=== PATIENT | female | born 1980 | race Caucasian/White ===

== ENCOUNTER 2020-04-09 13:31 | Outpatient (CLI) | payer OTHER | END 2020-04-09 20:54 | disposition home or self-care (01) | LOC: SUS 13:31 | PROVIDERS: ATTEND Specialist | DX: Z12.31 Encounter for screening mammogram for malignant neoplasm of breast (principal); N85.2 Hypertrophy of uterus; R93.89 Abnormal findings on diagnostic imaging of other specified body structures; N83.201 Unspecified ovarian cyst, right side | CPT/HCPCS: 76830-TC; 76857; 77067 ==

== ENCOUNTER 2020-12-31 05:54 | Emergency (ER) | payer MEDICAID, OTHER ==
[~2020-12-31] VITALS: Ht 157.5 cm; Wt 62.6 kg
[2020-12-31 06:00] VITALS: BP_SYST 120
[2020-12-31] MEDS ORDERED: CEPH500C2 PO (06:34)
== END 2020-12-31 06:49 | disposition home or self-care (01) ==
LOC: SED 05:54
DX: L81.8 Other specified disorders of pigmentation (principal); J02.8 Acute pharyngitis due to other specified organisms; B97.89 Other viral agents as the cause of diseases classified elsewhere; Z79.899 Other long term (current) drug therapy
CPT/HCPCS: 99283

== ENCOUNTER 2021-01-22 09:56 | Outpatient (CLI) | payer OTHER ==
[~2021-01-22 09:56] MED LIST: CEPH500C2 PO
[2021-01-22 10:42] LABS: BILIRUBIN,URINE NEGATIVE (NEGATIVE); BLOOD, URINE NEGATIVE (NEGATIVE); CLARITY/URINE CLEAR (CLEAR); COLOR,URINE YELLOW (YELLOW); GLUCOSE,URINE NEGATIVE (NEGATIVE); KETONES,URINE TRACE (NEGATIVE); LEUKOCYTE ESTERASE ,URINE 1+ (NEGATIVE); NITRITE, URINE NEGATIVE (NEGATIVE); PH,URINE 5.5 (5.0-8.0); PROTEIN URINE NEGATIVE (NEGATIVE); UROBILINOGEN,URINE 0.2 (0.2-1.0)
[2021-01-22 10:45] LABS: BASOPHILS % (AUTO) 0.8 % (0.0-2.0); EOSINOPHILS # (AUTO) 0.2 K/uL (0.0-0.4); EOSINOPHILS % (AUTO) 3.2 % (0.0-4.0); HEMATOCRIT 29.6 % (36-48); HEMOGLOBIN 9.1 g/dL (12.0-16.0); LYMPHOCYTES # (AUTO) 1.6 K/uL (1.0-5.5); LYMPHOCYTES % (AUTO) 32.7 % (20.5-51.5); MEAN CORPUSCULAR HEMOGLOBIN 23 pg (27-31); MEAN CORPUSCULAR HGB CONC 31 % (32-36); MEAN CORPUSCULAR VOLUME 75 fL (79.0-98.0); MONOCYTES # (AUTO) 0.3 K/uL (0.0-1.0); MONOCYTES % (AUTO) 6.1 % (1.7-9.3); NEUTROPHILS # (AUTO) 2.8 K/uL (1.8-7.7); NEUTROPHILS % (AUTO) 57.2 % (40.0-70.0); PLATELET COUNT (AUTO) 478 K/uL (130-430); RED BLOOD CELL COUNT(AUTO) 3.97 MIL/uL (4.2-6.2); RED CELL DISTRIBUTION WIDTH 21.3 % (9.0-15.0); WHITE BLOOD COUNT (AUTO) 4.9 K/uL (4.8-10.8)
[2021-01-22 10:49] LABS: BACTERIA,URINE FEW /HPF (None Seen); RBC,URINE 0-3 /HPF (0-3)
[2021-01-22 10:50] LABS: MUCUS,URINE 1+ /LPF (None Seen)
[2021-01-22 11:13] LABS: ALBUMIN 3.8 g/dL (3.4-4.8); CALCIUM 8.9 mg/dL (8.4-11.0); CREATININE 0.5 mg/dL (0.55-1.30); FREE T4 (FREE THYROXINE) 0.9 ng/dl (0.8-1.5); POTASSIUM 3.3 mmol/L (3.5-5.1); THYROID STIMULATING HORMONE 1.55 uIu/mL (0.36-3.74); TOTAL BILIRUBIN 0.2 mg/dL (0.0-1.0)
[2021-01-23 04:06] LABS: HEMOGLOBIN A1C 4.9 % (4.8-5.6)
== END 2021-01-22 14:50 | disposition home or self-care (01) ==
LOC: SLB 09:56
PROVIDERS: ATTEND Family Medicine
DX: Z00.00 Encounter for general adult medical examination without abnormal findings (principal)
CPT/HCPCS: 36415; 80053; 80061; 81000; 82306; 82607; 83036; 83540; 84439; 84443; 85025

== ENCOUNTER 2021-03-11 10:29 | Emergency (ER) | payer OTHER, MEDICAID ==
[~2021-03-11] VITALS: Ht 154.9 cm; Wt 54.4 kg
[~2021-03-11 10:29] MED LIST changes: +CEPH-548 PO; -CEPH500C2 PO
[2021-03-11 11:00] VITALS: BP_SYST 109
[2021-03-11] MEDS ORDERED: ALBMDI INH (11:04)
[2021-03-11] MEDS ORDERED: BENZ-16 PO (11:04)
[2021-03-11 11:30] VITALS: BP_SYST 109
== END 2021-03-11 11:30 | disposition home or self-care (01) ==
LOC: SED 10:29
DX: J06.9 Acute upper respiratory infection, unspecified (principal); Z79.899 Other long term (current) drug therapy
CPT/HCPCS: 99283

== ENCOUNTER 2021-07-28 06:54 | Outpatient (CLI) | payer OTHER ==
[~2021-07-28 06:54] MED LIST changes: +ALBMDI INH; +BENZ-16 PO
[2021-07-28 08:04] LABS: BASOPHILS % (AUTO) 0.8 % (0.0-2.0); EOSINOPHILS # (AUTO) 0.1 K/uL (0.0-0.4); EOSINOPHILS % (AUTO) 2.3 % (0.0-4.0); HEMATOCRIT 34.5 % (36-48); LYMPHOCYTES # (AUTO) 1.7 K/uL (1.0-5.5); LYMPHOCYTES % (AUTO) 35.3 % (20.5-51.5); MEAN CORPUSCULAR HEMOGLOBIN 26 pg (27-31); MEAN CORPUSCULAR HGB CONC 32 % (32-36); MEAN CORPUSCULAR VOLUME 83 fL (79.0-98.0); MONOCYTES # (AUTO) 0.4 K/uL (0.0-1.0); MONOCYTES % (AUTO) 7.8 % (1.7-9.3); NEUTROPHILS # (AUTO) 2.5 K/uL (1.8-7.7); NEUTROPHILS % (AUTO) 53.8 % (40.0-70.0); PLATELET COUNT (AUTO) 421 K/uL (130-430); RED BLOOD CELL COUNT(AUTO) 4.17 MIL/uL (4.2-6.2); RED CELL DISTRIBUTION WIDTH 19.4 % (9.0-15.0); WHITE BLOOD COUNT (AUTO) 4.7 K/uL (4.8-10.8)
[2021-07-28 08:59] LABS: ALANINE AMINOTRANSFERASE 13 U/L (12-78); ALBUMIN 3.3 g/dL (3.4-4.8); ANION GAP 7 (5-15); ASPARTATE AMINOTRANSFERASE 14 U/L (10-37); CHLORIDE 106 mmol/L (98-107); CREATININE 0.47 mg/dL (0.55-1.30); POTASSIUM 3.6 mmol/L (3.5-5.1); SODIUM SERUM 140 mmol/L (136-145); UREA NITROGEN, BLOOD 15 mg/dL (8-21)
[2021-07-28 09:27] LABS: GFR AFRICAN AMERICAN 188 mL/min (>90)
[2021-07-28 09:29] LABS: TOTAL BILIRUBIN < 0.1 mg/dL (0.0-1.0)
[2021-07-28 09:46] LABS: TOTAL IRON BIND. CAPACITY 431 ug/dL (250-450)
[2021-07-28 09:54] LABS: CALCIUM 9.1 mg/dL (8.4-11.0)
[2021-07-28 09:55] LABS: GLUCOSE 43 mg/dL (70-99)
== END 2021-07-28 21:03 | disposition home or self-care (01) ==
LOC: SLB 06:54
PROVIDERS: ATTEND Specialist
DX: D50.9 Iron deficiency anemia, unspecified (principal)
CPT/HCPCS: 36415; 80053; 83540; 83550; 85025

== ENCOUNTER 2021-11-12 15:22 | Outpatient (CLI) | payer OTHER | END 2021-11-12 20:14 | disposition home or self-care (01) | LOC: SMA 15:22 | PROVIDERS: ATTEND Specialist | DX: Z12.31 Encounter for screening mammogram for malignant neoplasm of breast (principal); N64.89 Other specified disorders of breast | CPT/HCPCS: 77067 ==

== ENCOUNTER 2022-08-26 09:47 | Outpatient (CLI) | payer OTHER ==
[2022-08-26 10:26] LABS: BASOPHILS % (AUTO) 0.6 % (0.0-2.0); EOSINOPHILS # (AUTO) 0.3 K/uL (0.0-0.4); EOSINOPHILS % (AUTO) 4.5 % (0.0-4.0); HEMOGLOBIN 10.8 g/dL (12.0-16.0); LYMPHOCYTES # (AUTO) 1.4 K/uL (1.0-5.5); LYMPHOCYTES % (AUTO) 23.8 % (20.5-51.5); MEAN CORPUSCULAR HEMOGLOBIN 32 pg (27-31); MEAN CORPUSCULAR HGB CONC 33 % (32-36); MEAN CORPUSCULAR VOLUME 96 fL (79.0-98.0); MONOCYTES # (AUTO) 0.3 K/uL (0.0-1.0); MONOCYTES % (AUTO) 5.4 % (1.7-9.3); NEUTROPHILS # (AUTO) 3.9 K/uL (1.8-7.7); NEUTROPHILS % (AUTO) 65.7 % (40.0-70.0); PLATELET COUNT (AUTO) 591 K/uL (130-430); RED BLOOD CELL COUNT(AUTO) 3.44 MIL/uL (4.2-6.2); RED CELL DISTRIBUTION WIDTH 12.6 % (9.0-15.0); WHITE BLOOD COUNT (AUTO) 5.9 K/uL (4.8-10.8)
[2022-08-26 10:39] LABS: CHOLESTEROL 167 mg/dL (<200); HDL CHOLESTEROL 48 mg/dL (>55); TRIGLYCERIDES 65 mg/dL (30-150)
== END 2022-08-26 19:09 | disposition home or self-care (01) ==
LOC: SLB 09:47
PROVIDERS: ATTEND Family Medicine
DX: K44.9 Diaphragmatic hernia without obstruction or gangrene (principal); N85.2 Hypertrophy of uterus; D50.0 Iron deficiency anemia secondary to blood loss (chronic); E78.00 Pure hypercholesterolemia, unspecified; Z90.3 Acquired absence of stomach [part of]
CPT/HCPCS: 36415; 76376; 80061; 85025

== ENCOUNTER 2022-10-20 08:02 | Day surgery (SDC) | payer OTHER ==
[~2022-10-20] VITALS: Ht 152.4 cm; Wt 42.8 kg
[2022-10-20] MEDS ORDERED: MIDAZOLAM HCL 5 MG/5 ML VIAL ONE (09:51)
[2022-10-20] MEDS ORDERED: fentaNYL CITRATE/PF 100 MCG/2 ML AMP ONE (09:51)
[2022-10-20] MEDS ORDERED: ONDANSETRON HCL 4 MG/2 ML VIAL ONE (09:52)
[2022-10-20 17:27] VITALS: O2SAT 100
[2022-10-20 18:34] VITALS: BP_SYST 111; PULSE 66; RESP 16; TEMP 97.8
== END 2022-10-20 11:34 | disposition home or self-care (01) ==
LOC: SDS 08:02 → SMU 08:04 → SDS 11:34
PROVIDERS: ATTEND Internal Medicine
DX: R11.2 Nausea with vomiting, unspecified (principal); K21.00 Gastro-esophageal reflux disease with esophagitis, without bleeding; K44.9 Diaphragmatic hernia without obstruction or gangrene; K29.50 Unspecified chronic gastritis without bleeding; K31.1 Adult hypertrophic pyloric stenosis; Z79.899 Other long term (current) drug therapy
CPT/HCPCS: 43239; 87081; 84703; 36415; 88305; 88312; 88313; 99152; G0378; J2250; J2405; J3010

== ENCOUNTER 2023-10-18 16:28 | Outpatient (CLI) | payer OTHER ==
[2023-10-18 17:10] LABS: BASOPHILS % (AUTO) 0.6 % (0.0-2.0); EOSINOPHILS # (AUTO) 0.2 K/uL (0.0-0.4); HEMATOCRIT 35.8 % (36-48); HEMOGLOBIN 11.9 g/dL (12.0-16.0); LYMPHOCYTES # (AUTO) 2.1 K/uL (1.0-5.5); LYMPHOCYTES % (AUTO) 33.5 % (20.5-51.5); MEAN CORPUSCULAR HEMOGLOBIN 30 pg (27-31); MEAN CORPUSCULAR HGB CONC 33 % (32-36); MEAN CORPUSCULAR VOLUME 90 fL (79.0-98.0); MONOCYTES # (AUTO) 0.5 K/uL (0.0-1.0); MONOCYTES % (AUTO) 7.9 % (1.7-9.3); NEUTROPHILS # (AUTO) 3.5 K/uL (1.8-7.7); PLATELET COUNT (AUTO) 482 K/uL (130-430); RED CELL DISTRIBUTION WIDTH 14.6 % (9.0-15.0); WHITE BLOOD COUNT (AUTO) 6.3 K/uL (4.8-10.8)
[2023-10-18 18:57] LABS: TOTAL IRON BIND. CAPACITY 581 ug/dL (250-450)
== END 2023-10-18 19:01 | disposition home or self-care (01) ==
LOC: SLB 16:28
PROVIDERS: ATTEND Specialist
DX: D50.9 Iron deficiency anemia, unspecified (principal)
CPT/HCPCS: 36415; 83540; 83550; 85025

== ENCOUNTER 2023-10-29 06:59 | Outpatient (CLI) | payer OTHER | END 2023-10-29 19:35 | disposition home or self-care (01) | LOC: SMA 06:59 | PROVIDERS: ATTEND Specialist | DX: Z12.31 Encounter for screening mammogram for malignant neoplasm of breast (principal); R92.332 Mammographic heterogeneous density, left breast | CPT/HCPCS: 76642; 77067 ==

== ENCOUNTER 2024-01-14 16:23 | Outpatient (CLI) | payer OTHER | END 2024-01-14 19:05 | disposition home or self-care (01) | LOC: SLB 16:23 | PROVIDERS: ATTEND Specialist | DX: N94.6 Dysmenorrhea, unspecified (principal) | CPT/HCPCS: 36415; 82670; 83001 ==

== ENCOUNTER 2024-01-21 13:10 | Outpatient (CLI) | payer OTHER | END 2024-01-21 20:12 | disposition home or self-care (01) | LOC: SMI 13:10 | PROVIDERS: ATTEND Specialist | DX: N85.2 Hypertrophy of uterus (principal); R10.2 Pelvic and perineal pain; Z98.891 History of uterine scar from previous surgery | CPT/HCPCS: 72195 ==